=== PATIENT | male | born 1980 | race Caucasian/White ===

== ENCOUNTER 2017-01-05 10:00 | Emergency (ER) | payer OTHER ==
[~2017-01-05] VITALS: Ht 190.5 cm; Wt 109.1 kg
[~2017-01-05 10:00] MED LIST: ACET500C5 PO; CLOT30CR24 TOP; TRAM50TA2 PO
[2017-01-05 10:25] VITALS: Ht 190.5 cm; Wt 109.1 kg
--- NOTE | 2017-01-05 10:48 | RADRPT ---
PROCEDURE: Chest Radiograph. CLINICAL INDICATION: Hemoptysis TECHNIQUE: Single frontal chest radiograph. COMPARISON: None available FINDINGS: The cardiomediastinal silhouette is within normal limits. No infiltrate or effusion is seen. Th e bones are intact. IMPRESSION: 1. Unremarkable chest radiograph. RPTAT: KK .Rahul Marley MD, MD Date Time Electronically viewed and signed by .Rahul Marley MD, on 01/05/2017 10:48 .B/
[2017-01-05 11:05] LABS: ADD SCAN DIFF NO
[2017-01-05 11:15] LABS: ALBUMIN 4.2 g/dl (3.3-4.9)
[2017-01-05 11:16] LABS: POTASSIUM 4.3 mmol/L (3.5-5.1)
[2017-01-05 11:17] LABS: INR 0.9; PARTIAL THROMBOPLASTIN TIME 28.1 Sec (25.0-35.0); PROTIME 12.1 Sec (12.2-14.2); PT RATIO 0.9
[2017-01-05 11:18] LABS: BILIRUBIN,INDIRECT 0.1 mg/dl (0-1.1); BILIRUBIN,TOTAL 0.1 mg/dl (0.2-1.3); CREATININE 0.88 mg/dl (0.61-1.24)
[2017-01-05 11:19] LABS: ALBUMIN/GLOBULIN RATIO 1.23; CALCIUM 9.3 mg/dl (8.4-10.2); TOTAL PROTEIN 7.6 g/dl (6.1-8.1)
[2017-01-05 11:20] LABS: BASOPHILS % 0.5 % (0.0-2.0); EOSINOPHILS # 0.1 10^3/ul (0.0-0.5); EOSINOPHILS % 2.2 % (0.0-7.0); HEMATOCRIT 45.7 % (42.0-52.0); HEMOGLOBIN 14.9 g/dl (14.0-18.0); LYMPHOCYTES # 2.2 10^3/ul (0.8-2.9); LYMPHOCYTES % 39.1 % (15.0-51.0); MEAN CORPUSCULAR HEMOGLOBIN 29.7 pg (29.0-33.0); MEAN CORPUSCULAR HGB CONC 32.6 g/dl (32.0-37.0); MONOCYTE # 0.4 10^3/ul (0.3-0.9); MONOCYTES % 7.5 % (0.0-11.0); NEUTROPHIL # 2.8 10^3/ul (1.6-7.5); NEUTROPHILS % 50.5 % (39.0-77.0); PLATELET COUNT 221 10^3/UL (140-415); RED BLOOD COUNT 5.02 10^6/ul (4.70-6.10); RED CELL DISTRIBUTION WIDTH 14.4 % (11.5-14.5); WHITE BLOOD COUNT 5.6 10^3/ul (4.8-10.8)
[2017-01-05 11:30] LABS: CK-MB 0.36 ng/ml (0.0-2.4)
[2017-01-05 11:32] LABS: TROPONIN-I 0.027 ng/ml (0.00-0.12)
[2017-01-05 12:14] VITALS: BP 114/79; PULSE 86; RESP 18; TEMP 98.8
--- NOTE | 2017-01-05 12:15 | ERD ---
ER Documentation Chief Complaint Date/Time DATE: 01/05/17 TIME: 12:12 Chief Complaint Cough x weeks, coughing blood x this AM was @ [facility] long-term recently, HPI This is a 36-year-old male that presents to the emergency department brought in by [employer] as he has been in the [facility] for roughly 24 hours and was scheduled to go to court for a felony possession of narcotics when just prior to leaving for Court he stated he has tuberculosis. According to the patient he was diagnosed with tuberculosis 1 month ago at [facility]. He had been admitted to the hospital for several days but left AGAINST MEDICAL ADVICE and stated he never received treatment. The patient denies any night sweats or weight loss. Contrary to the triage note the patient does not have a productive or nonproductive cough however he indicates that just prior to leaving for Court he coughed up a dime size amount of bright red blood. He denies any melanotic stools and no hematemesis. He did not take any antipyretics prior to arrival. He has no shortness of breath at rest or exertion. He denies a headache or changes in vision. ROS All systems reviewed and are negative except as per history of present illness. Medications Home Meds Discontinued Scripts Clotrimazole* (Clotrimazole* AF) 1% - 30 Gm Cream.gm., 1 APPLIC TOP BID for 14 Days, TUB Prov:ARVIND MOORE PA-C 09/20/16 Tramadol HCl (Tramadol HCl) 50 Mg Tablet, 50 MG PO Q4 Y for PAIN, #20 TAB Prov:ARVIND MOORE PA-C 09/20/16 Acetaminophen* (Tylophen*) 500 Mg Capsule, 1 CAP PO Q6H Y for PAIN AND OR ELEVATED TEMP, #30 CAP Prov:ARVIND MOORE PA-C 09/20/16 Allergies Allergies: Coded Allergies: NSAIDS (Non-Steroidal Anti-Inflamma (Verified Allergy, Unknown, 02/28/15) PMhx/Soc History of Surgery: Yes (LT TESTICAL REMOVED ) Hx Respiratory Disorders: Yes (ASTHMA) Hx Cardiac Disorders: No Hx Psychiatric Problems: No Hx Miscellaneous Medical Probl: Yes (CHRONIC BACK PAIN ) Hx Alcohol Use: Yes Hx Substance Use: No Hx Tobacco Use: Yes Smoking Status: Current every day smoker Physical Exam Vitals Vital Signs Date Time Temp Pulse Resp B/P Pulse Ox O2 Delivery O2 Flow Rate FiO2 01/05/17 10:25 97.7 54 18 140/84 100 Physical Exam Constitutional:Well-developed. Well-nourished. HEENT:Normocephalic. Atraumatic.Pupils were equal round reactive to light. Moist mucous membranes.No tonsillar exudates. Neck: No nuchal rigidity. No lymphadenopathy. No posterior cervical spine tenderness or step-offs. Respiratory: Not using accessory muscles of respiration.Lungs were clear to auscultation bilaterally. No rhonchi. No rales. No wheezing. Cardiovascular: Regular rate regular rhythm.No murmurs. No rubs were appreciated.S1, S2 normal. Distal pulses are palpable 2+ bilaterally. GI: Abdomen was soft. Nontender. Non Distended. No pulsatile abdominal masses or bruits. No rebound. No guarding. Bowel sounds were present and normal. Muscle skeletal: Full range of motion of both the upper and lower extremities bilaterally.Normal muscle tone.No assymetrical calf tenderness or swelling. Skin: No petechia, no purpura. No lesions on the palms or the soles of the feet. No maculopapular rash. NEURO: Patient was alert, awake, orientated x3.No facial droop. Gait observed and normal with no ataxia.Speech had regular rate and rhythm. No focal neurological deficits. Result Diagram: 01/05/17 1055 01/05/17 1055 Results 24 hrs Laboratory Tests Test 01/05/17 10:55 Activated Partial Thromboplast Time 28.1Sec Alanine Aminotransferase (ALT/SGPT) 28IU/L Albumin 4.2g/dl Albumin/Globulin Ratio 1.23 Alkaline Phosphatase 67IU/L Anion Gap 15 Aspartate Amino Transf (AST/SGOT) 21IU/L B-Type Natriuretic Peptide 42PG/ML Basophils # 0.010^3/ul Basophils % 0.5% Blood Urea Nitrogen 13mg/dl Calcium Level 9.3mg/dl Carbon Dioxide Level 33mmol/L Chloride Level 99mmol/L Creatine Kinase 52IU/L Creatine Kinase Index 0.7 Creatinine 0.88mg/dl Creatinine Kinase MB (Mass) 0.36ng/ml Direct Bilirubin 0.00mg/dl Eosinophils # 0.110^3/ul Eosinophils % 2.2% Globulin 3.40g/dl Glucose Level 78mg/dl Hematocrit 45.7% Hemoglobin 14.9g/dl INR International Normalized Ratio 0.90 Indirect Bilirubin 0.1mg/dl Lymphocytes # 2.210^3/ul Lymphocytes % 39.1% Mean Corpuscular Hemoglobin 29.7pg Mean Corpuscular Hemoglobin Concent 32.6g/dl Mean Corpuscular Volume 91.0fl Mean Platelet Volume 10.0fl Monocytes # 0.410^3/ul Monocytes % 7.5% Neutrophils # 2.810^3/ul Neutrophils % 50.5% Nucleated Red Blood Cells # 0.010^3/ul Nucleated Red Blood Cells % 0.0/100WBC Platelet Count 70302^3/UL Potassium Level 4.3mmol/L Prothrombin Time 12.1Sec Prothrombin Time Ratio 0.9 Red Blood Count 5.0210^6/ul Red Cell Distribution Width 14.4% Sodium Level 143mmol/L Total Bilirubin 0.1mg/dl Total Protein 7.6g/dl Troponin I 0.027ng/ml White Blood Count 5.610^3/ul Procedures/MDM This patient presented to the emergency department with the possibility of a tuberculosis diagnosis. The patient was immediately placed in isolation. The patient was nontoxic in appearance with no electrolyte abnormalities, no leukocytosis and was afebrile with no antipyretics given. 12 Lead EKG tracing ordered and reviewed by myself showed: Normal sinus rhythm of 62 bpm and no arrhythmia. AL interval normal. QRS duration normal. No ST segment elevation No ST segment depression. No changes consistent with acute ischemia. I obtained a chest radiograph which showed no infiltrates no pneumothorax or pleural effusions are no findings of tuberculosis. AFB sputum cultures were obtained. My clinical suspicion was low for active pulmonary tuberculosis and therefore I did feel the patient to be safely discharged under the care of [employer] for fpc clearance. Departure Diagnosis: Primary Impression: Cough Condition: Fair Patient Instructions: TB Culture Additional Instructions: Patient medically cleared for fpc clearance as patient does not have TB MOODY CARRILLO Jan 05, 2017 12:14
== END 2017-01-05 12:25 ==
LOC: E/R 10:00
DX: R05 Cough (principal); J45.909 Unspecified asthma, uncomplicated; F17.210 Nicotine dependence, cigarettes, uncomplicated
CPT/HCPCS: 36415; 71010; 80053; 82550; 82553; 83880; 84484; 85025; 85610; 85730; 87116; 93005

== ENCOUNTER 2017-03-27 08:59 | Emergency (ER) | payer OTHER ==
[~2017-03-27] VITALS: Ht 190.5 cm; Wt 97.5 kg
[2017-03-27 09:02] VITALS: Ht 190.5 cm; Wt 97.5 kg
[2017-03-27] MEDS ORDERED: SULF1TAB31 PO (11:05)
[2017-03-27] MEDS ORDERED: ACET500C5 PO (11:07)
--- NOTE | 2017-03-27 11:19 | ERD ---
ER Documentation Chief Complaint Date/Time DATE: 03/27/17 TIME: 11:13 Chief Complaint blister to right heel since yesterday HPI This is a 37-year-old male who presents to the emergency department today for a wound check of his left foot. Patient states he had a blister there. States that he went to [facility] 2 days ago as he thought that there was something in it. States x-rays were negative and he was given a prescription for Keflex that he just picked up today. States that he is homeless and is currently living in shelters. 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 Denies any fevers or chills. ROS All systems reviewed and are negative except as per history of present illness. Medications Home Meds Active Scripts Acetaminophen* (Tylophen*) 500 Mg Capsule, 1 CAP PO Q6H Y for PAIN AND OR ELEVATED TEMP, #30 CAP Prov:ARVIND MOORE PA-C 03/27/17 Sulfamethoxazole/Trimethoprim* (Bactrim Ds* Tablet) 1 Each Tablet, 1 TAB PO BID for 7 Days, #14 TAB Prov:ARVIND MOORE PA-C 03/27/17 Allergies Allergies: Coded Allergies: NSAIDS (Non-Steroidal Anti-Inflamma (Verified Allergy, Unknown, 02/28/15) PMhx/Soc History of Surgery: Yes (LT TESTICAL REMOVED ) Hx Respiratory Disorders: Yes (ASTHMA) Hx Cardiac Disorders: No Hx Psychiatric Problems: No Hx Miscellaneous Medical Probl: Yes (CHRONIC BACK PAIN ) Hx Alcohol Use: Yes Hx Substance Use: No Hx Tobacco Use: Yes Smoking Status: Current every day smoker Physical Exam Vitals Vital Signs Date Time Temp Pulse Resp B/P Pulse Ox O2 Delivery O2 Flow Rate FiO2 03/27/17 09:02 98.1 124 18 134/85 99 Physical Exam Const: No acute distress Head: Atraumatic Eyes: Normal Conjunctiva ENT: Normal External Ears, Nose and Mouth. Neck: Full range of motion..~ No meningismus. Resp: Clear to auscultation bilaterally Cardio: Regular rate and rhythm, no murmurs Skin: Left foot with evidence of 3 x 2 cm blister with purulent drainage localized erythema. Bilateral feet with evidence of tinea. Ext: left foot With no obvious deformity. No effusion. No ecchymosis. Full active range of motion ankle. Evidence of 3 x 2 cm blister with purulent drainage and localized erythema. Neur: Awake and alert Psych: Normal Mood and Affect Procedures/MDM Note patient eloped prior to receiving discharge paperwork and prescription for Bactrim This a 37-year-old male who presents to the emergency department today for a wound check of a blister on his left foot. Patient was seen at [facility] 2 days ago and had negative x-rays. There does not appear to be evidence of foreign body. Patient is afebrile and otherwise well-appearing. However on physical exam patient has evidence of purulent drainage coming out of the blister with localized erythema. Wound was cleaned in the usual sterile fashion and I did use an 18-gauge needle to create a bigger space in the blister and purulent drainage was removed. When I return to check on the patient he had pulled the skin off the blister. There is evidence of mucous plug and granulation tissue. Patient symptoms at this time is consistent with infected blister and localized cellulitis. Patient will be given a prescription for Bactrim to take in addition to the Keflex. He was given a prescription for Tylenol for pain as well. The wound was dressed here in the emergency department. I offered the patient crutches multiple times however he kept refusing and I explained to the patient would be beneficial to take pressure off of his foot. Patient then did agree to use the crutches. Patient was requesting socks and extra dressing. Patient was given these supplies. Low suspicion for sepsis or deep space infection. Patient was instructed to return in 48 hours for a wound check and keep the wound clean and dry. I did offer to give the patient antifungal medication as well but he stated that he already had some. At this time the patient is stable for discharge and outpatient management. Patient should follow up with their PCP in the next 1-2 days. They may return to the emergency department sooner for any persistent or worsening of symptoms. Patient understood and agreed with the plan. Dr. Mccormick has seen and evaluated the patient is in agreement with the plan. Note : Patient eloped prior to receiving discharge paperwork and prescription for Bactrim. Departure Diagnosis: Primary Impression: Infected blister Condition: Fair Patient Instructions: Cellulitis, Blister Referrals: your PCP Additional Instructions: Call your primary care doctor TOMORROW for an appointment during the next 1-2 days.See the doctor sooner or return here if your condition worsens before your appointment time. Wound Check in 48 hours Take antibiotics as prescribed in addition to the Keflex to her already prescribed Use crutches to help ambulate and take pressure off foot Keep wound clean and dry ARVIND MOORE PA-C March 27, 2017 11:19
== END 2017-03-27 12:12 | disposition left against medical advice (07) ==
LOC: FTE 08:59
DX: R23.8 Other skin changes (principal); L08.9 Local infection of the skin and subcutaneous tissue, unspecified; J45.909 Unspecified asthma, uncomplicated; F17.210 Nicotine dependence, cigarettes, uncomplicated

== ENCOUNTER 2017-04-06 18:57 | Emergency (ER) | payer OTHER ==
[~2017-04-06] VITALS: Ht 177.8 cm; Wt 99.5 kg
[~2017-04-06 18:57] MED LIST changes: -CLOT30CR24 TOP; +SULF1TAB31 PO; -TRAM50TA2 PO
[2017-04-06 19:00] VITALS: Ht 177.8 cm; Wt 99.5 kg
--- NOTE | 2017-04-06 20:21 | ERD ---
ER Documentation Chief Complaint Date/Time DATE: 04/06/17 TIME: 20:18 Chief Complaint wound check left foot HPI This 37-year-old male patient presents to emergency department today with complaint of worsening of the left foot wound. Patient reports that symptoms originally started 3 weeks ago, states that he stepped on glass at work, that it was a 3 pain glass and it went through his foot. Patient was seen and treated at [facility], presented here on 03/27/2017 for wound reevaluation. Patient had a blister which he opened at that time with evidence of mucous plugging and granulated tissue. At that time there was low suspicion for sepsis, treated for wound infection with Keflex and Bactrim. Patient reports that he lost the prescription for Bactrim so he never took it. Keflex which was prescribed at [facility] patient states that he did take. Patient denies nausea, vomiting, increased pain, or fever. Patient reports that he played basketball today and has not changed his wound dressing and several days ROS All systems reviewed and are negative except as per history of present illness. Medications Home Meds Active Scripts Acetaminophen* (Tylophen*) 500 Mg Capsule, 1 CAP PO Q6H Y for PAIN AND OR ELEVATED TEMP, #30 CAP Prov:ARVIND MOORE PA-C 03/27/17 Sulfamethoxazole/Trimethoprim* (Bactrim Ds* Tablet) 1 Each Tablet, 1 TAB PO BID for 7 Days, #14 TAB Prov:ARVIND MOORE PA-C 03/27/17 Allergies Allergies: Coded Allergies: NSAIDS (Non-Steroidal Anti-Inflamma (Verified Allergy, Unknown, 02/28/15) PMhx/Soc History of Surgery: Yes (LT TESTICAL REMOVED ) Hx Respiratory Disorders: Yes (ASTHMA) Hx Cardiac Disorders: No Hx Psychiatric Problems: No Hx Miscellaneous Medical Probl: Yes (CHRONIC BACK PAIN ) Hx Alcohol Use: Yes Hx Substance Use: No Hx Tobacco Use: Yes Smoking Status: Current every day smoker Physical Exam Vitals Vital Signs Date Time Temp Pulse Resp B/P Pulse Ox O2 Delivery O2 Flow Rate FiO2 04/06/17 19:00 97.8 88 20 143/85 100 Vitals stable, triage notes reviewed Physical Exam Const: Well-appearing, no acute distress Head: Atraumatic Eyes: Normal Conjunctiva, PERRLA, EOMI ENT: Normal External Ears, Nose and Mouth. Neck: Resp: Chest rises and falls symmetrically, clear to auscultation bilaterally, no respiratory distress Cardio: Abd: Skin: Dorsal left foot has a open shallow wound approximately 1.5 cm x 1 cm, and 0.5 cm deep white wets boggy with erythema, and tissue sloughing Back: Ext: Lower Extremity left foot: Skin: Dorsal left foot has a open shallow wound approximately 1.5 cm x 1 cm, and 0.5 cm deep white wets boggy with erythema, and tissue sloughing Compartments: Soft Motor: Full active range of motion hip/knee/ankle/foot Sensation: Intact to light touch anterior, inferior and lateral Bones: Nontender malleoli/foot Joints: No effusion or laxity Pulses/Perfusion: 2+ DP, Capillary refill < 2 seconds Neur: Awake and alert Psych: Normal Mood and Affect Results 24 hrs Current Medications Medications (Trade) Dose Ordered Sig/Azul Route PRN Reason Start Time Stop Time Status Last Admin Dose Admin Acetaminophen (Tylenol Tab) 650 mg ONCE ONCE PO 04/06/17 20:30 04/06/17 20:31 DC 04/06/17 20:37 Procedures/MDM This pleasant 37-year-old male patient presents to emergency department today for reevaluation of foot laceration. Patient was seen over 10 days ago prescribed Bactrim to add to his Keflex for the same. Original injury obtained by stepping on double plated glass plate at work. Glass slides through his work boot. Patient was treated at [facility], and seen again here to 10 days ago when Bactrim was added. Patient states he lost prescription never started Bactrim. Patient reports he has been ambulatory on foot, played basketball today, dressing is wet, with serosanguineous dressing, wound is wet, white, boggy, open appears infected. I have ordered x-rays and laboratory diagnostic testing, patient refuses states he would just like a dressing change that he has to go to work and will return tomorrow for further evaluation. Patient was given AMA paperwork, dressing changed patient signed paperwork leaving emergency room AGAINST MEDICAL ADVICE. I have advised patient that wound appears infected that he would need antibiotic treatment discussed the possibilities of osteomyelitis and the dangers including limb amputation. Patient verbalizes understanding. VANE DOUGHERTY April 06, 2017 20:21
[2017-04-06] MEDS ORDERED: ACETAMINOPHEN 325 MG TAB PO ONE (20:30)
== END 2017-04-06 21:00 | disposition left against medical advice (07) ==
LOC: FTE 18:57
DX: Z48.01 Encounter for change or removal of surgical wound dressing (principal); J45.909 Unspecified asthma, uncomplicated; F17.210 Nicotine dependence, cigarettes, uncomplicated
CPT/HCPCS: Z7502; Z7610; 99281